=== PATIENT | male | born 1950 | race Caucasian/White ===

== ENCOUNTER 2025-07-16 14:26 | Emergency (ER) | payer BC, SELFPAY ==
[2025-07-16 14:29] VITALS: BP 121/84
--- NOTE | 2025-07-16 16:05 | ED.GENMED ---
History of Present Illness
General
Chief Complaint: Fall
Time Seen by Provider: 07/16/25 16:03
History of Present Illness
History of Present Illness:
FOCUSED PAST MEDICAL HISTORY
- The patient has a history of brain cancer, high blood pressure, hyperlipidemia, anxiety/depression
REVIEW OF OLD RECORDS
- No old records available for review in [facility]
Note:
CHIEF COMPLAINT(S)
Loss of consciousness and foot pain.
HISTORY OF PRESENT ILLNESS
The patient is a 74-year-old male with a history of a left foot fracture who presents to the emergency department following episodes of syncope. He has experienced multiple episodes of passing out over the past few months. A few months ago, during
one such episode, he fractured his left foot. Last night, he got up to use the restroom and lost consciousness again, resulting in a fall in which he hit his head and injured his right foot. The patient denies taking any blood-thinning medications.
Regarding his right foot, he reports pain, but no definitive fracture was noted on the recent x-ray. Additionally, the patient mentioned a dislocated pinky finger, which was reduced on examination today. The patient has a history of a brain
tumor�specifically a non-Hodgkins lymphoma involving the brain approximately 15-20 years ago. There is concern about potential intracranial injury given the patients age and the history of head trauma. There is no report of chest pain. The patient
denies any current disorientation or difficulty remembering.
PAST MEDICAL AND SURGICAL HISTORY
1. Left foot fracture a few months ago.
2. History of brain cancer (non-Hodgkins lymphoma involving the brain) 15-20 years ago.
CHRONIC MEDICAL CONDITIONS SIGNIFICANTLY AFFECTING CARE
Chronic conditions affecting care: History of non-Hodgkins lymphoma involving the brain.
PHYSICAL EXAM
- General: Well appearing in no distress
- Head: No craniofacial trauma
- C-spine: No midline c-spine tenderness; normal AROM of C-spine
- Back: Normal AROM thoracolumbar spine
- HEENT: Moist oral mucosa, no blood
- Cardiovascular: No murmurs, normal heart rate, regular rhythm, No chest wall tenderness
- Pulmonary: No respiratory distress, breath sounds are clear and equal
- Abdomen: Soft with no peritoneal signs, no tenderness
- Neurologic: Excellent strength all extremities, no coordination deficits
- Psychiatric: Appropriate mental status, normal insight and judgement
- Extremities: Nontender, no edema, moves all extremities equally
- Skin: No rash, no lesions
- Right foot: Although he points to pain at the right first MTP joint, there is no tenderness at this location
- Pinky finger: There is obvious deformity at the right fifth digit at the PIP consistent with dorsal dislocation
Nursing notes reviewed and vital signs reviewed.
PLAN
1. Obtain blood work to evaluate potential causes of syncope.
2. Perform a computed tomography (CT) scan of the brain to rule out intracranial bleeding or recurrence of lymphoma.
3. Finger reduction
DIFFERENTIAL DIAGNOSIS
The Differential Diagnosis includes, in no particular order and is not limited to:
- Syncope due to orthostatic hypotension
- Cardiac arrhythmia
- Transient ischemic attack
- Seizure
- Vestibular dysfunction
- Hypoglycemia
- Electrolyte imbalance
- Recurrence of lymphoma
- Postural instability
- Medication side effects
SUMMARY OF ENCOUNTER
The patient was seen in the emergency department for episodes of syncope resulting in falls and injury to his right foot and pinky finger. He was evaluated for potential intracranial injury given his history of a brain tumor and recent head injury.
An x-ray confirmed a pinky dislocation, which was reduced in the emergency department. A CT scan of the brain was considered to assess for potential intracranial causes, given the patients history and recent head trauma.
DISPOSITION
Discharge after evaluation and management in the emergency department, including blood work and CT scan.
MEDICAL DECISION MAKING
1. Number and Complexity of Problems Addressed:
- Chronic conditions affecting care: History of non-Hodgkins lymphoma involving the brain.
- Differential Diagnosis list as stated above.
2. Data:
Category 1:
- Blood work and CT scan of the brain were ordered to further evaluate the patients symptoms.
3. Risk:
- Consideration of Admission/Observation: Escalation of care including admission/observation was considered given the complexity and risk of the patients presenting complaint, exam findings, and/or their underlying comorbidities. However, ultimately
I feel the patient is safe for outpatient management with close follow-up. Reasoning: Work-up reassuring, does not reveal any acute life/organ-threatening processes, patients symptoms well controlled upon re-evaluation, re-examination is reassuring,
vitals are stable, patient agreeable with discharge, reliable for follow-up.
DIAGNOSIS
- Syncope, unspecified (ICD-10: R55)
- Head injury (ICD-10: S09.90XA)
- Dislocation of proximal interphalangeal joint of right little finger (ICD-10: S63.635A)
- Right foot pain
RADIOLOGY
- I personally viewed x-ray and there is a dorsal dislocation of the right PIP. Offered and considered postreduction x-ray however the patient declines. Clinically, he is clearly reduced. X-ray right foot unremarkable for fracture
CAT scan of the brain shows no acute abnormality
EKG
- Sinus 60, normal axis, no acute ST abnormality, no old to compare
LABS
- White count 11.6, hemoglobin normal, calcium slightly high at 10.6 otherwise chemistries unremarkable
UPDATE
-SUMMARY OF ENCOUNTER
The 74-year-old male patient was seen in the emergency department for multiple episodes of syncope, resulting in falls and corresponding injuries, including a recent dislocated right pinky finger, which was reduced manually. He has a concerning
medical history of non-Hodgkins lymphoma involving the brain from 15-[address] scan of the brain was performed to rule out intracranial bleeding or tumor recurrence. Consistent with the imaging, the report shows no signs of intracranial
bleed or mass. The patients blood work revealed mostly normal results, albeit with a slightly elevated calcium level. The right foot pain did not reveal any fracture on the x-ray. The x-ray confirmed a dislocated PIP joint of the right little
finger, without any fracture.
DISPOSITION
Discharge.
ASSESSMENT
The patient is experiencing syncope episodes of unclear etiology, necessitating further follow-up to rule out potential cardiac and neurological causes.
PLAN
1. Follow-up with an lighting specialist for the dislocated finger, although splinting appears adequate based on current assessment.
2. Follow-up with primary care provider and sales and marketing assistant for continued evaluation of syncope.
3. Discussion with orthopedic doctor regarding the dislocated PIP joint in the right pinky finger at the upcoming appointment.
INDEPENDENT REVIEW OF LABS AND INTERPRETATION OF TESTS
- My independent review of blood work indicates mostly normal findings with slightly elevated PT/INR and calcium level.
- My independent interpretation of the CT scan of the brain shows no signs of bleeding, tumors, or masses.
PATIENT EDUCATION AND COUNSELING
The patient was informed of the findings from imaging and lab tests. Reassurance was given that the CT scan of the brain showed no acute intracranial issues. The importance of follow-up with primary care and sales and marketing assistant was emphasized for further
evaluation of the syncope episodes.
FOLLOW-UP INSTRUCTIONS
Please follow up with your primary care physician and sales and marketing assistant promptly for further evaluation of syncope episodes. Follow up with your orthopedic doctor as scheduled for the management of your finger dislocation.
MEDICATION RECONCILIATION
No new medications were prescribed or administered during this visit.
MEDICAL DECISION MAKING
1. Number and Complexity of Problems Addressed:
- Chronic conditions affecting care: History of non-Hodgkins lymphoma involving the brain.
- Differential Diagnosis: Syncope due to orthostatic hypotension, cardiac arrhythmia, transient ischemic attack, seizure, vestibular dysfunction, hypoglycemia, electrolyte imbalance, recurrence of lymphoma, postural instability, medication side
effects.
2. Data:
Category 1:
- Blood work and CT scan of the brain were ordered and reviewed.
Category 2:
- None.
Category 3:
- None.
3. Risk:
Consideration of Admission/Observation: Escalation of care including admission/observation was considered given the complexity and risk of the patients presenting complaint, exam findings, and/or their underlying comorbidities. However, ultimately,
I feel the patient is safe for outpatient management with close follow-up. Reasoning: Work-up reassuring, does not reveal any acute life/organ-threatening processes, patients symptoms well controlled upon reevaluation, reexamination is reassuring,
vitals are stable, patient agreeable with discharge, reliable for follow-up.
DIAGNOSIS
- Syncope, unspecified (ICD-10: R55)
- Head injury due to fall (ICD-10: S09.90XA)
- Dislocation of proximal interphalangeal joint of right little finger (ICD-10: S63.635A)
Phy Exam
Physical Exam
Physical Exam:
See HPI
Course
Orders/Labs/Results
Orders:
Orders
07/16/25 14:35
ECG [Electrocardiogram (*1)] Urgent
Reason for Study: Syncope
EKG- Treatment ONCE
Finger(s)/Thumb 2 View Rt [CR Finger(s)/thumb Min 2 Vw Rt] Urgent
Comment:
Reason For Exam: fall, pain, swelling of R fifth finger
07/16/25 14:41
Foot, Right 3 View [CR Foot - Right Min 3 Views] Urgent
Comment:
Reason For Exam: fall, pain
07/16/25 16:13
Electrocardiogram (*1) Urgent
Reason for Study: Syncope
EKG- Treatment ONCE
07/16/25 16:14
CT Head W/o Iv Contrast Urgent
Comment:
Reason For Exam: recurrent syncope; h/o NHL of brain
07/16/25 16:18
Aluminium Finger Splint Right ONCE
07/16/25 16:56
Complete Blood Count/With Diff Urgent
Comprehensive Metabolic Panel Urgent
Abnormal Lab Results
07/16/25
16:56
WBC 11.6 H 10^3/uL
(4.8-10.8)
MCH 32.7 H pg
(27.0-31.0)
Absolute Neuts (auto) 8.5 H 10^3/uL
(1.4-6.5)
Absolute Monos (auto) 0.9 H 10^3/uL
(0.1-0.6)
Lymphocytes % 16.3 L %
(20.5-51.1)
BUN 21 H mg/dl
(9-20)
Glucose 101 H mg/dl
(70-99)
Calcium 10.6 H mg/dl
(8.4-10.2)
07/16/25 16:56
07/16/25 16:56
Vital Signs
Initial and Last Documented VS:
Initial Vital Signs
Temp Pulse Resp BP Pulse Ox
36.9 C 70 20 121/84 97
07/16/25 14:29 07/16/25 14:29 07/16/25 14:29 07/16/25 14:29 07/16/25 14:29
Last Documented Vital Signs
Temp Pulse Resp BP Pulse Ox
36.9 C 52 12 138/94 98
07/16/25 14:29 07/16/25 16:45 07/16/25 16:45 07/16/25 16:43 07/16/25 16:45
Procedures
Joint/Fracture Reduction
Right Proximal Fifth Finger(s):
Indication for procedure:: Right fifth PIP dislocation
Procedure completed by: Fl, Dr. Laura
Consent form signed: No
If no, reason: Emergency procedure
Joint reduced: without anesthesia
Injury was: closed
Further treatement: needs re-check only
Post reduction exam: stable
Capillary Refill: normal
Normal distal neurovascular exam?: Yes
*Pulse Oximetry
SaO2: 97
Oxygen Mode of Delivery: Room air
Patient hypoxic: no
*Critical Care Note
Total Time (30-74mins, 75-104mins- exclusive of procedures): Not Applicable
ED Attending Note
-
Portions of this chart may have been created with voice recognition software.� Occasional wrong word or��sound alike� substitutions may have occurred due to the inherent limitations of voice recognition software.
Discharge Plan
Departure
Referrals:
Ganga Fuller MD [Family Provider, [facility]]
Interventions
Interventions:
*Risk Screen - Suicide Last Done: 07/16/25 14:29
*General Assessment Last Done: 07/16/25 14:29
*Neglect/Abuse Screening Last Done: 07/16/25 14:29
Discharge Date and Time
Print Language: IVORIAN
[2025-07-16 16:43] VITALS: BP 138/94
[2025-07-16 17:04] LABS: Hematocrit 44.1 % (39.0-52.0); Hemoglobin 16.0 g/dL (13.0-18.0); Mean Corp Hgb Conc. 36.3 g/dL (33.0-37.0); Mean Corpuscular Volume 90.0 fL (80.0-94.0); Nucleated Red Blood Cells % 0 % (-); Platelet Count 186 10^3/uL (130-400); Red Cell Dist. Width 11.9 % (11.5-14.5)
[2025-07-16 17:23] LABS: ALT (SGPT) 25 U/L (0-50); AST (SGOT) 27 U/L (17-59); Albumin 5.0 g/dl (3.5-5.0); Alkaline Phosphatase 77 U/L (38-126); Blood Urea Nitrogen 21 mg/dl (9-20); Calcium 10.6 mg/dl (8.4-10.2); Carbon Dioxide 30 mmol/L (22-30); Chloride 100 mmol/L (98-107); Glucose 101 mg/dl (70-99); Potassium 4.9 mmol/L (3.5-5.1); Sodium 137 mmol/L (135-145); Total Protein 8.0 g/dl (6.3-8.2); eGFR > 60.00
[2025-07-16 19:45] VITALS: BP 143/98
== END 2025-07-16 20:18 | disposition home or self-care (01) ==
LOC: EMR 14:26
PROVIDERS: EMERGENCY PHYSICIAN Emergency Medicine; FAMILY PHYSICIAN Family Medicine
DX: S63.286A Dislocation of proximal interphalangeal joint of right little finger, initial encounter (principal); W19.XXXA Unspecified fall, initial encounter; E78.00 Pure hypercholesterolemia, unspecified; R79.1 Abnormal coagulation profile; Z85.72 Personal history of non-Hodgkin lymphomas; Z85.841 Personal history of malignant neoplasm of brain; Z87.828 Personal history of other (healed) physical injury and trauma
CPT/HCPCS: 99284; 26770; 70450; 73140; 73630; 80053; 85025; 93005

== ENCOUNTER 2025-11-12 00:58 | Emergency (ER) | payer OTHER, SELFPAY ==
[2025-11-12] VITALS (7 sets, daily range): BP systolic 76–141; BP diastolic 63–106; PULSE 66–80; BMI 21.8
[2025-11-12 01:21] LABS: Hematocrit 45.7 % (39.0-52.0); Hemoglobin 15.8 g/dL (13.0-18.0); Mean Corp Hgb Conc. 34.6 g/dL (33.0-37.0); Mean Corpuscular Volume 95.6 fL (80.0-94.0); Nucleated Red Blood Cells % 0 % (-); Platelet Count 206 10^3/uL (130-400); Red Cell Dist. Width 11.7 % (11.5-14.5)
[2025-11-12 01:34] LABS: ALT (SGPT) 20 U/L (0-50); AST (SGOT) 27 U/L (17-59); Albumin 5.0 g/dl (3.5-5.0); Alkaline Phosphatase 75 U/L (38-126); Blood Urea Nitrogen 20 mg/dl (9-20); Calcium 10.5 mg/dl (8.4-10.2); Carbon Dioxide 28 mmol/L (22-30); Chloride 100 mmol/L (98-107); Estimated Creatinine Clearance 54 ml/min; Glucose 103 mg/dl (70-99); Potassium 4.2 mmol/L (3.5-5.1); Sodium 137 mmol/L (135-145); Total Protein 8.2 g/dl (6.3-8.2); eGFR > 60.00
--- NOTE | 2025-11-12 02:14 | ED.GENMED ---
History of Present Illness
<Anatoliy Barnhart MD, Resident - Last Filed: 11/12/25 06:26>
General
Chief Complaint: Fainting Sensation
Time Seen by Provider: 11/12/25 02:14
History of Present Illness
History of Present Illness:
74 yo M PMH presyncope c/b left foot fracture in 06/2025, chart reported history of nonHodgkin lymphoma involving brain p/w presyncope and dizziness. He has been having multiple episodes of lightheadedness over the past several months.
Today, he is coming in because he fell, hit head on sofa after being unsteady on feet. denies LOC. He also fell yesterday per . He lives at home.
he endorses feeling lightheadedness whenever he gets up quickly from a seated positoin.
he denies palpitations
he has chronic back pain, but denies any new back pain
he denies any new pain on extremities but notes several bruises
he reports taking 'regular aspirin, not cardiac aspirin' every day. denies apixaban, rivaroxaban or any other blood thinning medications
he denies headache, denies nausea vomiting
patient reports neck pain, he says it is chronic, no focal tenderness appreciable on palpation during physical exam
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
he is being worked up outpatient and follows with a neurologist outside [place].
Review of Systems
<Anatoliy Barnhart MD, Resident - Last Filed: 11/12/25 06:26>
Review of Systems
Constitutional: Reports no symptoms
EENT: Reports no symptoms
Respiratory: Reports no symptoms
Cardiac: Reports other (presyncope)
ABD/GI: Reports no symptoms
Musculoskeletal: Reports no symptoms
Neurological: Reports dizzy
Phy Exam
<Anatoliy Barnhart MD, Resident - Last Filed: 11/12/25 06:26>
Physical Exam
Physical Exam:
VS: 141/106; HR 88; T 98; O2sat 95%
General: no acute distress
CV: no murmurs
Pulm: CTAB
GI: + bowel sounds, no tenderness to palpation
MSK: no lower extremity edema
Neuro: AOx3, nonfocal
Course
<Anatoliy Barnhart MD, Resident - Last Filed: 11/12/25 06:26>
Orders/Labs/Results
Orders:
Orders
11/12/25 01:08
EKG [Electrocardiogram (*1)] Urgent
Reason for Study: Tachycardia
EKG- Treatment ONCE
11/12/25 01:09
Complete Blood Count/With Diff Urgent
Comprehensive Metabolic Panel Urgent
11/12/25 03:02
CT Cervical Spine W/o Iv Contr Urgent
Comment:
Reason For Exam: fall with headstrike, no LOC
CT Head W/o Iv Contrast Urgent
Comment:
Reason For Exam: fall with headstrike, no LOC
Orthostatic VS- Treatment ONCE
11/12/25 04:51
0.9% Sodium Chloride 1000 ml [Nss] 1,000 ml IV BOLUS
Abnormal Lab Results
11/12/25
01:09
MCV 95.6 H fL
(80.0-94.0)
MCH 33.1 H pg
(27.0-31.0)
Absolute Neuts (auto) 7.7 H 10^3/uL
(1.4-6.5)
Lymphocytes % 19.1 L %
(20.5-51.1)
Glucose 103 H mg/dl
(70-99)
Calcium 10.5 H mg/dl
(8.4-10.2)
11/12/25 01:09
11/12/25 01:09
Vital Signs
Initial and Last Documented VS:
Initial Vital Signs
Temp Pulse Resp BP Pulse Ox
98.0 F 92 16 141/106 96
11/12/25 01:00 11/12/25 01:00 11/12/25 01:00 11/12/25 01:00 11/12/25 01:00
Last Documented Vital Signs
Temp Pulse Resp BP Pulse Ox
98.0 F 77 20 76/63 98
11/12/25 01:00 11/12/25 05:45 11/12/25 05:45 11/12/25 03:29 11/12/25 05:00
<Nba Boothe, DO - Last Filed: 11/12/25 04:59>
Orders/Labs/Results
Orders:
Orders
11/12/25 01:08
EKG [Electrocardiogram (*1)] Urgent
Reason for Study: Tachycardia
EKG- Treatment ONCE
11/12/25 01:09
Complete Blood Count/With Diff Urgent
Comprehensive Metabolic Panel Urgent
11/12/25 03:02
CT Cervical Spine W/o Iv Contr Urgent
Comment:
Reason For Exam: fall with headstrike, no LOC
CT Head W/o Iv Contrast Urgent
Comment:
Reason For Exam: fall with headstrike, no LOC
Orthostatic VS- Treatment ONCE
11/12/25 04:51
0.9% Sodium Chloride 1000 ml [Nss] 1,000 ml IV BOLUS
Abnormal Lab Results
11/12/25
01:09
MCV 95.6 H fL
(80.0-94.0)
MCH 33.1 H pg
(27.0-31.0)
Absolute Neuts (auto) 7.7 H 10^3/uL
(1.4-6.5)
Lymphocytes % 19.1 L %
(20.5-51.1)
Glucose 103 H mg/dl
(70-99)
Calcium 10.5 H mg/dl
(8.4-10.2)
11/12/25 01:09
11/12/25 01:09
Vital Signs
Initial and Last Documented VS:
Initial Vital Signs
Temp Pulse Resp BP Pulse Ox
98.0 F 92 16 141/106 96
11/12/25 01:00 11/12/25 01:00 11/12/25 01:00 11/12/25 01:00 11/12/25 01:00
Last Documented Vital Signs
Temp Pulse Resp BP Pulse Ox
98.0 F 77 20 76/63 98
11/12/25 01:00 11/12/25 05:45 11/12/25 05:45 11/12/25 03:29 11/12/25 05:00
<Anatoliy Barnhart MD, Resident - Last Filed: 11/12/25 06:26>
MDM/Problems Addressed
Differential Diagnosis Includes:
orthostasis, vasovagal, arrhythmia, anemia, electrolyte abnormality, medication adverse effect, ACS, syncope
MDM/Problems Addressed:
74 yo M PMH ongoing presyncope/dizziness c/b syncope and falls
+ headstrike, no LOC, aspirin but no other blood thinning agents
he follows with a neurologist not at [place]
he denies palpitations
reports feeling lightheadedness when getting up quickly
denies chest pain, denies dyspnea
he reports taking aspirin (regular dose, not cardiac dose) but denies apixaban, rivaraxoban, or other blood thinning agents
he denies taking beta blockers, diuretics, and/or alpha-blockers like tamsulosin
patient reports neck pain, he says it is chronic, no focal tenderness appreciable on palpation during physical exam
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
Plan:
CBC
CMP
EKG
CT Head noncontrast
CT C-spine noncontrast
Orthostatic vital signs
Update:
CT Head noncontrast: no acute intracranial abnormality
CT C-spine noncontrast: no fractures
EKG NSR
CBC, CMP largely unremarkable
orthostatic vital signs positive -> ordered 1 L NS.
Update @ 06:20
patient completed 1L NS
patient is medically stable for discharge and patient is okay to be discharged
patient has been counselled to follow-up outpatient with primary care doctor and neurologist
<Anatoliy Barnhart MD, Resident - Last Filed: 11/12/25 06:26>
*Pulse Oximetry
SaO2: 95
Oxygen Mode of Delivery: Room air
Patient hypoxic: no
*Critical Care Note
Total Time (30-74mins, 75-104mins- exclusive of procedures): Not Applicable
<Nba Boothe, - Last Filed: 11/12/25 04:59>
Update Note
Update Note:
5 AM patient is orthostatic we will give a bolus of saline
ED Attending Note
<Anatoliy Barnhart MD, Resident - Last Filed: 11/12/25 06:26>
-
Portions of this chart may have been created with voice recognition software.� Occasional wrong word or��sound alike� substitutions may have occurred due to the inherent limitations of voice recognition software.
<Nba Boothe DO - Last Filed: 11/12/25 04:59>
ED Attending Note
Patient seen and examined by attending physician: Yes
I performed a history and physical exam of patient and discussed management with resident, I reviewed resident's note and agree with documented findings and plan of care.: Yes
ED Attending Note:
Seen with resident examined independently recurrent dizziness had a fall struck his head he has chronic neck pain scheduled to see a neurologist at [facility] in the coming weeks
Discharge Plan
Departure
Patient Disposition: Home (Routine Discharge)
Date of Disposition: 11/12/25
Time of Disposition: 06:22
Patient with high blood pressure during this ER visit?: No
Condition: Fair
Discharge Problem:
Pre-syncope
Instructions: Near Fainting (DC)
Referrals:
Fernando Bermudez MD [Active, Neurology] - Follow up in 10 days
Ganga Fuller MD [Family Provider, Family Practice]
Activity Restrictions/Additional Instructions:
You presented with presyncope and a fall with headstrike. While here, your CT scan of the head, and CT C-spine were negative for fracture and bleed. You received IV fluids.
Please follow-up with your outpatient primary care doctor and neurologist. A neurologist at [place], should you wish to receive care here, has been suggested above.
Interventions
Interventions:
*General Assessment Last Done: 11/12/25 01:00
*Neglect/Abuse Screening Last Done: 11/12/25 01:00
*ED COVID-19 Vaccine History Last Done: 11/12/25 01:00
*ED Influenza Vaccine History Last Done: 11/12/25 01:00
[facility] Risk Assessment Tool Last Done: 11/12/25 01:05
*Risk Screen - Suicide (C-SSRS) Last Done: 11/12/25 01:00
ED- Cardiac Assessment Last Done: 11/12/25 01:07
ED- Neurological Assessment Last Done: 11/12/25 01:06
Discharge Date and Time
Print Language: PASHTO
[2025-11-12] MEDS: NSS 1000 IV (05:00)
== END 2025-11-12 06:32 | disposition home or self-care (01) ==
LOC: EMR 00:58
PROVIDERS: Emergency Medicine; EMERGENCY PHYSICIAN Emergency Medicine; FAMILY PHYSICIAN Family Medicine
DX: R55 Syncope and collapse (principal); M54.2 Cervicalgia; G89.29 Other chronic pain; Z79.82 Long term (current) use of aspirin; Z85.72 Personal history of non-Hodgkin lymphomas
CPT/HCPCS: 99284; 96360; 70450; 72125; 80053; 85025; 93005